=== PATIENT | male | born 1980 ===

== ENCOUNTER 2021-03-26 13:48 | Emergency (ER) | payer OTHER ==
[~2021-03-26] VITALS: Ht 165.1 cm; Wt 82.0 kg
--- NOTE | 2021-03-26 17:23 | NUR ---
Sarah newell in [facility] - 03/26/21 at 1725 by [id number] PT WALKED BACK FROM TRIAGE TO ROOM
--- NOTE | 2021-03-26 17:25 | NUR ---
[id number]
--- NOTE | 2021-03-26 17:44 | NUR ---
PT WALKED BACK FROM LOBBY TO ROOM
--- NOTE | 2021-03-26 18:25 | NUR ---
PT SEEN BY GENE HARVEY, [place] ORDERS RECEIVED.
[2021-03-26 18:49] VITALS: BP 115/84
--- NOTE | 2021-03-26 19:02 | NUR ---
dc orders received. pt given dc instructions and script for carson chan. pt a&o, resps even and unlabored, nadn. pt able to speak in full sentences without difficulty. spo2 maintained >90% throughout ED stay. pt awaiting full registration prior to dc.
--- NOTE | 2021-03-26 19:03 | NUR ---
report given to SNEHA Banegas
== END 2021-03-26 19:38 | disposition home or self-care (01) ==
LOC: ED 19:07
DX: U07.1 COVID-19 (principal); J18.9 Pneumonia, unspecified organism; B34.9 Viral infection, unspecified
CPT/HCPCS: 71045; 99283